=== PATIENT | male | born 1950 | race African-American/Black ===

== ENCOUNTER → 2018-06-17 | Outpatient (CLI) | payer MEDICARE, MEDICAID | END | disposition home or self-care (01) | LOC: NM 08:41 | PROVIDERS: ATTEND Urology | DX: K86.9 Disease of pancreas, unspecified (principal); N28.89 Other specified disorders of kidney and ureter | CPT/HCPCS: 78306; A9503 ==

== ENCOUNTER → 2020-05-05 | Outpatient (CLI) | payer MEDICARE, MEDICAID ==
[~2020-05-05] MED LIST: IOHEXOL-300 100 ML BOTTLE ONE
== END | disposition home or self-care (01) ==
LOC: CT 10:41
PROVIDERS: ATTEND Urology
DX: C64.1 Malignant neoplasm of right kidney, except renal pelvis (principal); N28.89 Other specified disorders of kidney and ureter; N40.0 Benign prostatic hyperplasia without lower urinary tract symptoms; I70.0 Atherosclerosis of aorta; M47.816 Spondylosis without myelopathy or radiculopathy, lumbar region
CPT/HCPCS: 74178; Q9967

== ENCOUNTER 2021-04-05 05:29 | Inpatient (IN) | payer MEDICARE, MEDICAID ==
[~2021-04-05] VITALS: Ht 185.4 cm; Wt 86.2 kg
[~2021-04-05 05:29] MED LIST changes: +ALBU18HF2 IH; +ERGO1250 PO; +FLUT1BLS3 INH; +HYDR-4009 MT; -IOHEXOL-300 100 ML BOTTLE ONE; +OLME1TAB30 MT; +POLY17PO43 MT; +PROT40 PO; +TERA5CAP4 MT; +TRAZ-251 MT
[2021-04-05] MEDS ORDERED: LACTATED RINGERS 1,000 ML IV SCH (05:30)
[2021-04-05 06:40] LABS: INR 1.1; PARTIAL THROMBOPLASTIN TIME 32.2 sec (23.4-31.0); PROTHROMBIN TIME 11.4 sec (9.6-11.0)
[2021-04-05 07:03] LABS: CLARITY URINE CLEAR (CLEAR); COLOR URINE YELLOW (YELLOW); KETONES URINE NEGATIVE (NEGATIVE); LEUKOCYTE ESTERASE URINE 3+ (NEGATIVE); NITRITE URINE NEGATIVE (NEGATIVE); OCCULT BLOOD URINE TRACE (NEGATIVE); PH URINE 7.5 (4.5-8.0); PROTEIN URINE NEGATIVE (NEGATIVE); SPECIFIC GRAVITY URINE 1.011 (1.005-1.030)
[2021-04-05] MEDS ORDERED: GENTAMICIN SULF 40MG/ML 2ML VIAL ONE (07:38)
[2021-04-05] MEDS ORDERED: LORAZEPAM 1MG TABLET PO PRN (09:00)
[2021-04-05] MEDS ORDERED: DOCUSATE SODIUM 250MG CAPSULE PO SCH (09:00)
[2021-04-05] MEDS ORDERED: HYDROCODONE/ACETAMINOPHEN 10/325MG TABLET PO PRN (09:00)
[2021-04-05] MEDS ORDERED: HYDROCODONE/ACETAMINOPHEN 5/325MG TABLET PO PRN ×2 (09:00→20:30)
[2021-04-05] MEDS ORDERED: MAGNESIUM HYDROXIDE 400MG/5ML 30ML UDC PO PRN ×2 (09:00→20:30)
[2021-04-05] MEDS ORDERED: PROM6.254 MT (09:10)
[2021-04-05] MEDS ORDERED: LABETALOL 5MG/ML SYR 20 MG/4 ML SYRINGE IV PRN (09:15)
[2021-04-05] MEDS ORDERED: MEPERIDINE HCL/PF 25MG/ML CPJ IV PRN (09:15)
[2021-04-05] MEDS ORDERED: ONDANSETRON HCL 4MG/2ML INJ IV PRN (09:15)
[2021-04-05] MEDS ORDERED: HYDROMORPHONE HCL/PF 2MG/ML CPJ IV PRN (09:15)
[2021-04-05 11:47] LABS: HEMATOCRIT 35.7 % (42.0-52.0); HEMOGLOBIN 12.2 g/dL (14.0-18.0)
[2021-04-05] MEDS ORDERED: SODIUM CHLORIDE 0.9% 500 ML IV NR (13:15)
[2021-04-05 16:00] VITALS: BP 122/60
[2021-04-05 16:51] VITALS: BP 126/88
[2021-04-05] MEDS: NICOTINE 7MG PATCH TD SCH (17:02)
[2021-04-05] MEDS: GENTAMICIN 80MG PREMIX 100 ML IV SCH (18:09)
[2021-04-05] MEDS: DORZOLAM/TIMOLOL 2.23/0.68% OPHTH DROPS 10ML BOTHEYE SCH (18:10)
[2021-04-05] MEDS: LATANOPROST 0.005% OPHTH DROPS 2.5ML BOTHEYE SCH (18:10)
[2021-04-05] MEDS: HYDROCODONE/ACETAMINOPHEN 10/325MG TABLET PO PRN (21:11)
[2021-04-06] VITALS: BP 99/48
[2021-04-06] MEDS: GENTAMICIN 80MG PREMIX 100 ML IV SCH ×3 (00:30→08:30)
[2021-04-06 04:00] VITALS: BP 108/60
[2021-04-06] MEDS: HYDROCODONE/ACETAMINOPHEN 10/325MG TABLET PO PRN (04:44)
[2021-04-06 07:06] LABS: BASOPHILS % 0.3 % (0.0-2.0); EOSINOPHILS % 0.6 % (0.0-5.0); HEMATOCRIT. 32.6 % (42.0-52.0); HEMOGLOBIN. 11.2 g/dL (14.0-18.0); LYMPHOCYTES % 10.3 % (20.0-50.0); MEAN CORPUSCULAR HEMOGLOBIN 30.8 pg (28.0-32.0); MEAN CORPUSCULAR VOLUME 89.9 fL (80.0-94.0); NEUTROPHILS % 81.8 % (40.0-76.0); RED BLOOD CELL COUNT 3.63 mill/uL (4.7-6.1); RED CELL DISTRIBUTION WIDTH 14.3 % (11.6-14.6)
[2021-04-06 07:14] LABS: CHLORIDE 98 mEq/L (98-107)
[2021-04-06 08:00] VITALS: BP 105/63
[2021-04-06] MEDS: LOSARTAN POTASSIUM 50 MG TABLET PO SCH (08:13)
[2021-04-06] MEDS: DOCUSATE SODIUM 250MG CAPSULE PO SCH (08:14)
[2021-04-06] MEDS: AMLODIPINE 10MG TABLET PO SCH (08:14)
[2021-04-06] MEDS: HYDROCHLOROTHIAZIDE 25MG TABLET PO SCH (08:14)
[2021-04-06] MEDS: NICOTINE 7MG PATCH TD SCH (08:15)
[2021-04-06] MEDS: LATANOPROST 0.005% OPHTH DROPS 2.5ML BOTHEYE SCH ×2 (08:19→16:02)
[2021-04-06] MEDS: DORZOLAM/TIMOLOL 2.23/0.68% OPHTH DROPS 10ML BOTHEYE SCH ×3 (08:19→16:02)
[2021-04-06] MEDS ORDERED: NALOXONE HCL 0.4MG/ML VIAL IV PRN (08:45)
[2021-04-06] MEDS ORDERED: LEVOFLOXACIN 500MG TABLET PO NR (11:00)
[2021-04-06 12:00] VITALS: BP 118/65
[2021-04-06 13:48] LABS: PLATELET 242 x1000/uL (130-400)
[2021-04-06 16:00] VITALS: BP 98/59
[2021-04-06 20:00] VITALS: BP 96/63
[2021-04-06] MEDS ORDERED: ACETAMINOPHEN 325MG TABLET PO PRN (22:00)
[2021-04-07] VITALS: BP 110/66
[2021-04-07 04:00] VITALS: BP 114/71
[2021-04-07] MEDS: HYDROCODONE/ACETAMINOPHEN 10/325MG TABLET PO PRN ×2 (07:09→12:10)
[2021-04-07 08:00] VITALS: BP 124/69
[2021-04-07] MEDS: LOSARTAN POTASSIUM 50 MG TABLET PO SCH (09:13)
[2021-04-07] MEDS: HYDROCHLOROTHIAZIDE 25MG TABLET PO SCH (09:13)
[2021-04-07] MEDS: AMLODIPINE 10MG TABLET PO SCH (09:13)
[2021-04-07] MEDS: DOCUSATE SODIUM 250MG CAPSULE PO SCH (09:13)
[2021-04-07] MEDS: NICOTINE 7MG PATCH TD SCH (09:15)
[2021-04-07] MEDS: DORZOLAM/TIMOLOL 2.23/0.68% OPHTH DROPS 10ML BOTHEYE SCH ×2 (09:16→12:11)
[2021-04-07] MEDS: LATANOPROST 0.005% OPHTH DROPS 2.5ML BOTHEYE SCH (09:17)
[2021-04-07 12:00] VITALS: BP 124/64
[2021-04-07 14:45] VITALS: BP 123/75
[2021-04-07 16:00] VITALS: BP 126/68
== END 2021-04-07 17:07 | disposition home or self-care (01) | DRG 713 ==
LOC: OR 05:29 → 8WST 13:37
PROVIDERS: ADMIT Urology; ATTEND Urology
PROC: 0VB08ZZ Excision of Prostate, Via Natural or Artificial Opening Endoscopic (ICD-10-PCS; principal; 2021-04-05)
DX: N40.1 Benign prostatic hyperplasia with lower urinary tract symptoms (principal); N13.8 Other obstructive and reflux uropathy; I10 Essential (primary) hypertension; F17.210 Nicotine dependence, cigarettes, uncomplicated; R33.8 Other retention of urine; Z20.822 Contact with and (suspected) exposure to COVID-19; N32.0 Bladder-neck obstruction
CPT/HCPCS: 36415; 71045; 80048; 80051; 81003; 82565; 82962; 85014; 85018; 85025; 87426; 88305; 93005; C1893; J1100; J1170; J1580; J3010; J3490